=== PATIENT | male | born 1935 | race Caucasian/White ===

== ENCOUNTER 2017-12-27 13:46 | Inpatient (IN) ==
[2017-12-27 14:23] LABS: Basophils % 0.2 % (0.0-0.8); Eosinophils % 0.2 % (0.00-10.9); Hematocrit 32.2 VOL% (42.0-52.0); Immature Granulocytes % 1.7 %; Immature Granulocytes Absolute 0.11 #; Lymphocytes # 0.4 10*3/uL (1.4-4.0); Lymphocytes % 6.3 % (21.2-54.2); Mean Corpuscular HGB Conc 34.2 GM/DL (32-36); Mean Corpuscular Hemoglobin 31 PG (27-34); Mean Corpuscular Volume 91.7 FL (87-102); Mean Platelet Volume 9.1 FL (9.6-12.0); Monocytes # 0.8 10*3/uL (0.11-0.8); Monocytes % 12.3 % (1.7-12.7); Neutrophils # 5.2 10*3/uL (1.4-7.4); Neutrophils % 79.3 % (38.7-73.9); Platelet Count 122 T/CUMM (130-400); Red Blood Count 3.51 MC/CUMM (3.8-5.5); Red Cell Distribution Width 14.2 % (9.3-17.3); White Blood Count 6.5 T/CUMM (4-12)
[2017-12-27 14:34] LABS: INR 1.1; PT Patient Result 11.8 SECS; Partial Thromboplastin Time 32.7 SECS (0-40)
[2017-12-27] MEDS ORDERED: cefTRIAXone 1,000 MG in SODIUM CHLORIDE 0.9% 100 ML IV STA (14:39)
[2017-12-27] MEDS ORDERED: FUROSEMIDE 40 MG/4 ML VIAL IV STA (14:40)
[2017-12-27 14:44] LABS: Alanine Aminotransferase 28 U/L (16-61); Albumin 3.6 G/DL (3.4-5.0); Alkaline Phosphatase 41 U/L (45-117); Aspartate Amino Transferase 50 U/L (0-37); Blood Urea Nitrogen 20 MG/DL (7-18); Calcium 8.7 MG/DL (8.5-10.1); Glucose 144 MG/DL (74-106); Osmolality,Calculated 284.4 MOS/KG (273-304); Potassium 3.6 MMOL/L (3.5-5.1); Sodium 140 MMOL/L (136-145)
[2017-12-27] MEDS ORDERED: ONDANSETRON 4 MG/2 ML VIAL IV PRN (15:35)
[2017-12-27] MEDS ORDERED: MORPHINE 4 MG/1 ML VIAL IV PRN (15:35)
[2017-12-27] MEDS ORDERED: ACETAMINOPHEN 325 MG TABLET PO PRN (15:35)
[2017-12-27 15:37] LABS: Apearance,Urine CLEAR (Clear); Bilirubin,Urine Negative (Negative); Blood, Urine Small mg/dL (Negative); Glucose,Urine (UA) Negative (Negative); Ketones,Urine 5 mg/dL (Negative); Nitrite,Urine Negative (Negative); Protein,Urine 30 MG/DL; RBC,Urine 50 /HPF (0-4); Urine Color Yellow (Yellow); Urine Specific Gravity 1.013 (1.001-1.035); Urine Urobilinogen < 2.0 EU/DL (0.2-1.0); WBC,Urine 2 /HPF (0-6)
[2017-12-27] MEDS ORDERED: SODIUM CHLORIDE 0.45% 1,000 ML IV SCH (16:00)
[2017-12-27] MEDS: FUROSEMIDE 40 MG/4 ML VIAL IV SCH (17:25)
[2017-12-27] MEDS: LEVOFLOXACIN INJ 750 MG in PREMIX 1 EACH IV SCH (17:58)
[2017-12-27] MEDS: CARVEDILOL 3.125 MG TABLET PO SCH (19:37)
[2017-12-27] MEDS: DOCUSATE SODIUM 100 MG CAPSULE PO SCH (22:11)
[2017-12-28] MEDS: CARVEDILOL 3.125 MG TABLET PO SCH ×4 (00:46→18:15)
[2017-12-28 03:22] LABS: Basophils % 0.4 % (0.0-0.8); Eosinophils % 0.4 % (0.00-10.9); Hematocrit 28.5 VOL% (42.0-52.0); Hemoglobin 9.6 GM/DL (14.0-18.0); Immature Granulocytes % 1.6 %; Immature Granulocytes Absolute 0.08 #; Lymphocytes # 0.9 10*3/uL (1.4-4.0); Lymphocytes % 17.8 % (21.2-54.2); Mean Corpuscular HGB Conc 33.7 GM/DL (32-36); Mean Corpuscular Hemoglobin 30 PG (27-34); Mean Corpuscular Volume 89.9 FL (87-102); Mean Platelet Volume 8.8 FL (9.6-12.0); Monocytes # 0.8 10*3/uL (0.11-0.8); Monocytes % 16.2 % (1.7-12.7); Neutrophils # 3.2 10*3/uL (1.4-7.4); Neutrophils % 63.6 % (38.7-73.9); Platelet Count 113 T/CUMM (130-400); Red Blood Count 3.17 MC/CUMM (3.8-5.5); Red Cell Distribution Width 13.9 % (9.3-17.3)
[2017-12-28 03:48] LABS: CKMB % 0.8 %; Calcium 7.8 MG/DL (8.5-10.1); Osmolality,Calculated 286.8 MOS/KG (273-304); Risk Ratio 2.75; Troponin I 0.327 NG/ML (0.00-0.045); VLDL CHOLESTEROL 18.8 MG/DL
[2017-12-28 04:13] LABS: Band Neutrophils 6 % (0-10); Eosinophils 1 % (0-10); Lymphocytes 17 % (20-55); Segmented Neutrophils 66 % (50-85); Total Cells Counted 100
[2017-12-28 04:14] LABS: Atypical Lymphocytes Few; Hypochromasia Slight; Ovalocytes 1+; Platelet Estimate Adequate; Polychromasia Few; Reactive Lymphocytes Few
[2017-12-28] MEDS: POTASSIUM CHLORIDE 20 MEQ TABLET PO PRN ×4 (06:50→12:40)
[2017-12-28] MEDS: DOCUSATE SODIUM 100 MG CAPSULE PO SCH ×2 (09:01→20:58)
[2017-12-28] MEDS: FUROSEMIDE 40 MG/4 ML VIAL IV SCH ×2 (09:01→17:23)
[2017-12-28] MEDS: PANTOPRAZOLE 40 MG TABLET PO SCH (09:01)
[2017-12-28] MEDS: BENZONATATE 100 MG CAPSULE PO PRN (10:23)
[2017-12-28] MEDS ORDERED: APIXABAN 5 MG TABLET PO SCH (10:30)
[2017-12-28] MEDS ORDERED: ALUMINUM/MAGNES/SIMETH MAX STR 30 ML UDCUP PO PRN (12:06)
[2017-12-28] MEDS: ALBUTEROL/IPRATROPIUM 3 ML NEB RESP TX SCH ×2 (14:49→19:34)
[2017-12-28] MEDS ORDERED: cefTRIAXone 1,000 MG in SYRINGE 1 EACH IV SCH (16:30)
[2017-12-28] MEDS: LEVOFLOXACIN INJ 750 MG in PREMIX 1 EACH IV SCH (17:30)
[2017-12-29] MEDS: ALBUTEROL/IPRATROPIUM 3 ML NEB RESP TX SCH ×4 (00:27→19:12)
[2017-12-29] MEDS: BENZONATATE 100 MG CAPSULE PO PRN (05:27)
[2017-12-29] MEDS: FUROSEMIDE 40 MG/4 ML VIAL IV SCH ×2 (07:56→15:50)
[2017-12-29] MEDS ORDERED: PRAMOXINE/HYDROCORTISONE RECTAL FOAM 10 GM CAN RECTAL PRN (08:35)
[2017-12-29] MEDS ORDERED: ASCORBIC ACID 500 MG PO SCH (09:00)
[2017-12-29] MEDS ORDERED: POTASSIUM CHLORIDE 10 MEQ TABLET PO SCH (09:00)
[2017-12-29] MEDS ORDERED: MAGNESIUM CHLORIDE 64 MG TABLET PO SCH (09:00)
[2017-12-29] MEDS ORDERED: CHOLECALCIFEROL 5,000 UNIT TABLET PO SCH ×2 (09:00→10:30)
[2017-12-29] MEDS ORDERED: LEVOFLOXACIN INJ 500 MG in PREMIX 1 EACH IV SCH (09:00)
[2017-12-29] MEDS: DOCUSATE SODIUM 100 MG CAPSULE PO SCH ×2 (09:25→20:54)
[2017-12-29] MEDS: ASCORBIC ACID 500 MG TABLET PO SCH (09:27)
[2017-12-29] MEDS: TAMSULOSIN 0.4 MG CAPSULE PO SCH ×2 (09:27→20:53)
[2017-12-29] MEDS: VITAMIN E 400 UNIT CAPSULE PO SCH (09:27)
[2017-12-29] MEDS: METOPROLOL SUCCINATE XL 100 MG TABLET PO SCH (09:27)
[2017-12-29] MEDS: POTASSIUM CHLORIDE 10 MEQ TABLET PO SCH ×2 (09:27→20:53)
[2017-12-29] MEDS: APIXABAN 5 MG TABLET PO SCH ×2 (09:27→20:54)
[2017-12-29] MEDS: CYANOCOBALAMIN 500 MCG TABLET PO SCH (09:28)
[2017-12-29] MEDS: FAMOTIDINE 20 MG TABLET PO SCH ×2 (09:29→20:54)
[2017-12-29] MEDS: PANTOPRAZOLE 40 MG TABLET PO SCH (09:29)
[2017-12-29] MEDS: OMEGA 3 ACID ETHYL ESTERS 1 GM CAPSULE PO SCH ×2 (09:29→20:54)
[2017-12-29] MEDS: cycloSPORINE OPH EMUL 1 VIAL BOTH EYES SCH ×2 (09:31→20:57)
[2017-12-29] MEDS: MAGNESIUM CHLORIDE 64 MG TABLET PO SCH ×2 (09:43→20:52)
[2017-12-29 10:04] LABS: Troponin I 0.082 NG/ML (0.00-0.045)
[2017-12-29] MEDS: ATORVASTATIN 80 MG TABLET PO SCH (20:53)
[2017-12-29] MEDS: POTASSIUM CHLORIDE 20 MEQ TABLET PO PRN (20:53)
[2017-12-29] MEDS: FENOFIBRATE 160 MG TABLET PO SCH (20:53)
[2017-12-30] MEDS: ALBUTEROL/IPRATROPIUM 3 ML NEB RESP TX SCH ×4 (00:17→19:10)
[2017-12-30 04:12] LABS: Basophils % 0.4 % (0.0-0.8); Eosinophils # 0.2 10*3/uL (0.0-0.87); Eosinophils % 4.5 % (0.00-10.9); Hematocrit 30.1 VOL% (42.0-52.0); Hemoglobin 10.1 GM/DL (14.0-18.0); Immature Granulocytes % 2.5 %; Immature Granulocytes Absolute 0.12 #; Lymphocytes # 1.2 10*3/uL (1.4-4.0); Lymphocytes % 23.8 % (21.2-54.2); Mean Corpuscular HGB Conc 33.6 GM/DL (32-36); Mean Corpuscular Hemoglobin 31 PG (27-34); Mean Corpuscular Volume 91.2 FL (87-102); Monocytes # 0.7 10*3/uL (0.11-0.8); Monocytes % 13.6 % (1.7-12.7); Neutrophils # 2.7 10*3/uL (1.4-7.4); Neutrophils % 55.2 % (38.7-73.9); Platelet Count 157 T/CUMM (130-400); Red Cell Distribution Width 14.4 % (9.3-17.3); White Blood Count 4.8 T/CUMM (4-12)
[2017-12-30 04:41] LABS: Albumin 2.9 G/DL (3.4-5.0); Bilirubin,Total 1.3 MG/DL (0.2-1.0); Calcium 8.1 MG/DL (8.5-10.1); Osmolality,Calculated 286.8 MOS/KG (273-304); Potassium 3.7 MMOL/L (3.5-5.1); Total Protein 6.4 G/DL (6.4-8.3)
[2017-12-30] MEDS: MAGNESIUM CHLORIDE 64 MG TABLET PO SCH ×2 (08:54→21:08)
[2017-12-30] MEDS: CYANOCOBALAMIN 500 MCG TABLET PO SCH (08:54)
[2017-12-30] MEDS: DOCUSATE SODIUM 100 MG CAPSULE PO SCH ×2 (08:54→21:10)
[2017-12-30] MEDS: VITAMIN E 400 UNIT CAPSULE PO SCH (08:55)
[2017-12-30] MEDS: OMEGA 3 ACID ETHYL ESTERS 1 GM CAPSULE PO SCH ×2 (08:55→21:09)
[2017-12-30] MEDS: ASCORBIC ACID 500 MG TABLET PO SCH (08:55)
[2017-12-30] MEDS: METOPROLOL SUCCINATE XL 100 MG TABLET PO SCH (08:55)
[2017-12-30] MEDS: PANTOPRAZOLE 40 MG TABLET PO SCH (08:55)
[2017-12-30] MEDS: FAMOTIDINE 20 MG TABLET PO SCH ×2 (08:55→21:08)
[2017-12-30] MEDS: CHOLECALCIFEROL 5,000 UNIT TABLET PO SCH (08:55)
[2017-12-30] MEDS: POTASSIUM CHLORIDE 10 MEQ TABLET PO SCH ×2 (08:55→21:09)
[2017-12-30] MEDS: APIXABAN 5 MG TABLET PO SCH ×2 (08:55→21:09)
[2017-12-30] MEDS: TAMSULOSIN 0.4 MG CAPSULE PO SCH ×2 (08:55→21:09)
[2017-12-30] MEDS: DOXYCYCLINE HYCLATE 100 MG CAPSULE PO SCH ×2 (09:07→21:09)
[2017-12-30] MEDS: FUROSEMIDE 40 MG TABLET PO SCH (09:08)
[2017-12-30] MEDS: FUROSEMIDE 40 MG/4 ML VIAL IV SCH (09:15)
[2017-12-30] MEDS: cycloSPORINE OPH EMUL 1 VIAL BOTH EYES SCH ×2 (11:43→21:10)
[2017-12-30 13:16] LABS: Mycoplasma pneumoniae Ab Inter SEE COMMENTS; Mycoplasma pneumoniae Ab, IgG Positive (Negative); Mycoplasma pneumoniae Ab, IgM Negative (Negative)
[2017-12-30] MEDS: FENOFIBRATE 160 MG TABLET PO SCH (21:08)
[2017-12-30] MEDS: ATORVASTATIN 80 MG TABLET PO SCH (21:09)
[2017-12-31] MEDS: ALBUTEROL/IPRATROPIUM 3 ML NEB RESP TX SCH ×4 (00:50→19:46)
[2017-12-31 04:39] LABS: Basophils % 0.5 % (0.0-0.8); Eosinophils # 0.3 10*3/uL (0.0-0.87); Hematocrit 31.6 VOL% (42.0-52.0); Hemoglobin 10.3 GM/DL (14.0-18.0); Immature Granulocytes % 4.8 %; Immature Granulocytes Absolute 0.27 #; Lymphocytes # 1.2 10*3/uL (1.4-4.0); Lymphocytes % 21.9 % (21.2-54.2); Mean Corpuscular HGB Conc 32.6 GM/DL (32-36); Mean Corpuscular Hemoglobin 30 PG (27-34); Mean Corpuscular Volume 91.3 FL (87-102); Mean Platelet Volume 8.9 FL (9.6-12.0); Monocytes # 0.8 10*3/uL (0.11-0.8); Monocytes % 13.3 % (1.7-12.7); Neutrophils # 3.1 10*3/uL (1.4-7.4); Neutrophils % 54.5 % (38.7-73.9); Platelet Count 214 T/CUMM (130-400); Red Blood Count 3.46 MC/CUMM (3.8-5.5); White Blood Count 5.6 T/CUMM (4-12)
[2017-12-31 05:01] LABS: Bilirubin,Total 1.2 MG/DL (0.2-1.0); Calcium 8.3 MG/DL (8.5-10.1); Osmolality,Calculated 286.8 MOS/KG (273-304); Potassium 4.1 MMOL/L (3.5-5.1); Total Protein 6.4 G/DL (6.4-8.3)
[2017-12-31 05:02] LABS: Band Neutrophils 1 % (0-10); Eosinophils 4 % (0-10); Hypochromasia 1+; Lymphocytes 15 % (20-55); Platelet Estimate Adequate; Segmented Neutrophils 67 % (50-85); Total Cells Counted 100
[2017-12-31 05:03] LABS: Atypical Lymphocytes Few
[2017-12-31] MEDS ORDERED: methylPREDNISolone ACETATE 40 MG/1 ML VIAL IM ONE (07:39)
[2017-12-31] MEDS: CYANOCOBALAMIN 500 MCG TABLET PO SCH (09:42)
[2017-12-31] MEDS: FAMOTIDINE 20 MG TABLET PO SCH ×2 (09:42→21:35)
[2017-12-31] MEDS: MAGNESIUM CHLORIDE 64 MG TABLET PO SCH ×2 (09:43→21:35)
[2017-12-31] MEDS: VITAMIN E 400 UNIT CAPSULE PO SCH (09:43)
[2017-12-31] MEDS: BENZONATATE 100 MG CAPSULE PO PRN (09:43)
[2017-12-31] MEDS: TAMSULOSIN 0.4 MG CAPSULE PO SCH ×2 (09:44→21:35)
[2017-12-31] MEDS: POTASSIUM CHLORIDE 10 MEQ TABLET PO SCH ×2 (09:44→21:35)
[2017-12-31] MEDS: APIXABAN 5 MG TABLET PO SCH ×2 (09:44→21:35)
[2017-12-31] MEDS: DOXYCYCLINE HYCLATE 100 MG CAPSULE PO SCH ×2 (09:44→21:35)
[2017-12-31] MEDS: METOPROLOL SUCCINATE XL 100 MG TABLET PO SCH (09:44)
[2017-12-31] MEDS: CHOLECALCIFEROL 5,000 UNIT TABLET PO SCH (09:44)
[2017-12-31] MEDS: DOCUSATE SODIUM 100 MG CAPSULE PO SCH (09:45)
[2017-12-31] MEDS: cycloSPORINE OPH EMUL 1 VIAL BOTH EYES SCH ×2 (09:45→21:36)
[2017-12-31] MEDS: OMEGA 3 ACID ETHYL ESTERS 1 GM CAPSULE PO SCH ×2 (09:45→21:35)
[2017-12-31] MEDS: ASCORBIC ACID 500 MG TABLET PO SCH (09:45)
[2017-12-31] MEDS: PANTOPRAZOLE 40 MG TABLET PO SCH (09:45)
[2017-12-31] MEDS: FUROSEMIDE 40 MG TABLET PO SCH (09:47)
[2017-12-31] MEDS: FENOFIBRATE 160 MG TABLET PO SCH (21:35)
[2017-12-31] MEDS: ATORVASTATIN 80 MG TABLET PO SCH (21:35)
[2018-01-01] MEDS: ALBUTEROL/IPRATROPIUM 3 ML NEB RESP TX SCH ×2 (01:13→07:35)
[2018-01-01] MEDS: DOCUSATE SODIUM 100 MG CAPSULE PO SCH ×2 (04:03→09:33)
[2018-01-01 05:06] LABS: Basophils % 0.6 % (0.0-0.8); Eosinophils # 0.3 10*3/uL (0.0-0.87); Eosinophils % 4.8 % (0.00-10.9); Hematocrit 31.6 VOL% (42.0-52.0); Hemoglobin 10.6 GM/DL (14.0-18.0); Immature Granulocytes % 7.2 %; Immature Granulocytes Absolute 0.45 #; Lymphocytes # 1.1 10*3/uL (1.4-4.0); Lymphocytes % 17.3 % (21.2-54.2); Mean Corpuscular HGB Conc 33.5 GM/DL (32-36); Mean Corpuscular Hemoglobin 31 PG (27-34); Mean Corpuscular Volume 91.3 FL (87-102); Mean Platelet Volume 8.7 FL (9.6-12.0); Monocytes # 0.8 10*3/uL (0.11-0.8); Monocytes % 13.4 % (1.7-12.7); Neutrophils # 3.6 10*3/uL (1.4-7.4); Neutrophils % 56.7 % (38.7-73.9); Platelet Count 234 T/CUMM (130-400); Red Blood Count 3.46 MC/CUMM (3.8-5.5); Red Cell Distribution Width 14.1 % (9.3-17.3); White Blood Count 6.3 T/CUMM (4-12)
[2018-01-01 05:18] LABS: Calcium 8.2 MG/DL (8.5-10.1); Potassium 4.2 MMOL/L (3.5-5.1)
[2018-01-01 05:34] LABS: Band Neutrophils 3 % (0-10); Eosinophils 3 % (0-10); Lymphocytes 18 % (20-55); Ovalocytes 1+; Platelet Estimate Normal; Segmented Neutrophils 63 % (50-85); Total Cells Counted 100
[2018-01-01 08:16] VITALS: BP 126/67
[2018-01-01] MEDS: BENZONATATE 100 MG CAPSULE PO PRN (09:33)
[2018-01-01] MEDS: APIXABAN 5 MG TABLET PO SCH (09:34)
[2018-01-01] MEDS: VITAMIN E 400 UNIT CAPSULE PO SCH (09:34)
[2018-01-01] MEDS: FUROSEMIDE 40 MG TABLET PO SCH (09:34)
[2018-01-01] MEDS: CHOLECALCIFEROL 5,000 UNIT TABLET PO SCH (09:34)
[2018-01-01] MEDS: FAMOTIDINE 20 MG TABLET PO SCH (09:34)
[2018-01-01] MEDS: METOPROLOL SUCCINATE XL 100 MG TABLET PO SCH (09:35)
[2018-01-01] MEDS: TAMSULOSIN 0.4 MG CAPSULE PO SCH (09:35)
[2018-01-01] MEDS: CYANOCOBALAMIN 500 MCG TABLET PO SCH (09:35)
[2018-01-01] MEDS: MAGNESIUM CHLORIDE 64 MG TABLET PO SCH (09:35)
[2018-01-01] MEDS: POTASSIUM CHLORIDE 10 MEQ TABLET PO SCH (09:36)
[2018-01-01] MEDS: OMEGA 3 ACID ETHYL ESTERS 1 GM CAPSULE PO SCH (09:36)
[2018-01-01] MEDS: DOXYCYCLINE HYCLATE 100 MG CAPSULE PO SCH (09:36)
[2018-01-01] MEDS: cycloSPORINE OPH EMUL 1 VIAL BOTH EYES SCH (09:36)
[2018-01-01] MEDS: ASCORBIC ACID 500 MG TABLET PO SCH (09:36)
[2018-01-01] MEDS: PANTOPRAZOLE 40 MG TABLET PO SCH (09:36)
== END 2018-01-01 10:40 | disposition home or self-care (01) | DRG 871 ==
LOC: N.ED 13:46 → N.EDINP 15:35 → N.TELES 16:12
PROVIDERS: ADMIT Family Medicine; ATTEND Family Medicine

== ENCOUNTER 2018-06-11 22:59 | Inpatient (IN) ==
[2018-06-11] MEDS ORDERED: SODIUM CHLORIDE 0.9% 500 ML IV STA (23:33)
[2018-06-11] MEDS ORDERED: ACETAMINOPHEN 500 MG TABLET PO STA (23:33)
[2018-06-11] MEDS ORDERED: PIPERACILLIN/TAZOBACTAM 3,375 MG in SODIUM CHLORIDE 0.9% 100 ML IV STA (23:33)
[2018-06-12] MEDS ORDERED: ONDANSETRON 4 MG/2 ML VIAL IV STA (00:33)
[2018-06-12] MEDS ORDERED: MORPHINE 4 MG/1 ML VIAL IV STA (00:33)
[2018-06-12] MEDS ORDERED: ONDANSETRON 4 MG/2 ML VIAL ONE (00:34)
[2018-06-12] MEDS ORDERED: MORPHINE 4 MG/1 ML VIAL ONE (00:34)
[2018-06-12 00:58] LABS: Alanine Aminotransferase 15 U/L (16-61); Albumin 2.6 G/DL (3.4-5.0); Alkaline Phosphatase 55 U/L (45-117); Amylase 39 U/L (25-115); Aspartate Amino Transferase 20 U/L (0-37); Blood Urea Nitrogen 16 MG/DL (7-18); Calcium 8.5 MG/DL (8.5-10.1); Glucose 132 MG/DL (74-106); Osmolality,Calculated 275.8 MOS/KG (273-304); Total Protein 6.4 G/DL (6.4-8.3)
[2018-06-12 01:01] LABS: Troponin I 0.071 NG/ML (0.00-0.045)
[2018-06-12 01:21] LABS: INR 1.2; PT Patient Result 12.7 SECS
[2018-06-12] MEDS ORDERED: FUROSEMIDE 40 MG/4 ML VIAL IV STA (01:28)
[2018-06-12 01:33] LABS: Basophils % 0.1 % (0.0-0.8); Eosinophils % 0.1 % (0.00-10.9); Hematocrit 29.5 VOL% (42.0-52.0); Hemoglobin 9.2 GM/DL (14.0-18.0); Lymphocytes % 1.8 % (21.2-54.2); Mean Corpuscular HGB Conc 31.2 GM/DL (32-36); Mean Corpuscular Volume 82.6 FL (87-102); Mean Platelet Volume 8.4 FL (9.6-12.0); Monocytes % 5.5 % (1.7-12.7); Neutrophils % 89.5 % (38.7-73.9); Platelet Count 333 T/CUMM (130-400); Red Blood Count 3.57 MC/CUMM (3.8-5.5); Red Cell Distribution Width 15.7 % (9.3-17.3)
[2018-06-12 01:34] LABS: Immature Granulocytes Absolute 0.44 #; Lymphocytes # 0.3 10*3/uL (1.4-4.0)
[2018-06-12 01:35] LABS: White Blood Count 14.9 T/CUMM (4-12)
[2018-06-12 01:35] LABS: Apearance,Urine CLEAR (Clear); Bacteria,Urine Occasional /HPF (Few); Bilirubin,Urine Negative (Negative); Blood, Urine Negative (Negative); Glucose,Urine (UA) Negative (Negative); Ketones,Urine Negative (Negative); Nitrite,Urine Negative (Negative); Protein,Urine Negative; RBC,Urine 1 /HPF (0-4); Urine Color Yellow (Yellow); Urine Specific Gravity 1.008 (1.001-1.035); Urine Urobilinogen < 2.0 EU/DL (0.2-1.0); WBC,Urine <1 /HPF (0-6)
[2018-06-12] MEDS ORDERED: IBUPROFEN 800 MG TABLET PO ONE (02:15)
[2018-06-12] MEDS ORDERED: IBUPROFEN 800 MG TABLET ONE (02:16)
[2018-06-12 02:40] LABS: Sedimentation Rate-Westergren 107 MM/HR (0-20)
[2018-06-12] MEDS ORDERED: ACETAMINOPHEN 325 MG TABLET PO PRN (02:53)
[2018-06-12] MEDS ORDERED: MORPHINE 4 MG/1 ML VIAL IV PRN (02:53)
[2018-06-12] MEDS ORDERED: SODIUM CHLORIDE 0.9% 1,000 ML IV SCH (02:53)
[2018-06-12] MEDS ORDERED: ONDANSETRON 4 MG/2 ML VIAL IV PRN (02:53)
[2018-06-12 03:09] LABS: Lymphocytes 1 % (20-55); Metamyelocytes 1 %; Myelocytes 1 %; Platelet Estimate Normal; Polychromasia Slight; Segmented Neutrophils 95 % (50-85); Total Cells Counted 100
[2018-06-12] MEDS: ALBUTEROL/IPRATROPIUM 3 ML NEB RESP TX SCH ×6 (03:33→23:25)
[2018-06-12 04:48] LABS: Basophils % 0.3 % (0.0-0.8); Hematocrit 27.8 VOL% (42.0-52.0); Hemoglobin 8.3 GM/DL (14.0-18.0); Immature Granulocytes % 1.2 %; Immature Granulocytes Absolute 0.18 #; Lymphocytes # 0.3 10*3/uL (1.4-4.0); Mean Corpuscular HGB Conc 29.9 GM/DL (32-36); Mean Platelet Volume 8.2 FL (9.6-12.0); Monocytes % 4.9 % (1.7-12.7); Neutrophils % 91.6 % (38.7-73.9); Platelet Count 247 T/CUMM (130-400); Red Blood Count 3.31 MC/CUMM (3.8-5.5); Red Cell Distribution Width 15.7 % (9.3-17.3); White Blood Count 15.1 T/CUMM (4-12)
[2018-06-12 05:06] LABS: Albumin 2.4 G/DL (3.4-5.0); Bilirubin,Total 0.8 MG/DL (0.2-1.0); Calcium 8.1 MG/DL (8.5-10.1); Osmolality,Calculated 275.8 MOS/KG (273-304); Total Protein 5.8 G/DL (6.4-8.3)
[2018-06-12 06:06] LABS: Lymphocytes 1 % (20-55); Platelet Estimate Normal; Segmented Neutrophils 92 % (50-85); Total Cells Counted 100
[2018-06-12 06:07] LABS: Polychromasia Few
[2018-06-12] MEDS ORDERED: MAGNESIUM SULF RIDER 2 GM in PREMIX 1 EACH IV ONE (08:40)
[2018-06-12] MEDS: TAMSULOSIN 0.4 MG CAPSULE PO SCH ×2 (09:00→20:11)
[2018-06-12] MEDS: APIXABAN 5 MG TABLET PO SCH ×2 (09:00→20:11)
[2018-06-12] MEDS: DOCUSATE SODIUM 100 MG CAPSULE PO SCH ×2 (09:00→20:12)
[2018-06-12] MEDS ORDERED: FUROSEMIDE 40 MG TABLET PO SCH (09:00)
[2018-06-12] MEDS: POTASSIUM CHLORIDE RIDER 10 MEQ in PREMIX 1 EACH IV SCH ×2 (09:01→10:52)
[2018-06-12] MEDS: PANTOPRAZOLE 40 MG VIAL IV SCH (09:01)
[2018-06-12] MEDS: FUROSEMIDE 40 MG/4 ML VIAL IV SCH ×2 (09:01→15:25)
[2018-06-12] MEDS: PIPERACILLIN/TAZOBACTAM 3,375 MG in SODIUM CHLORIDE 0.9% 100 ML IV SCH ×2 (09:02→16:57)
[2018-06-12] MEDS: cycloSPORINE OPH EMUL 1 VIAL BOTH EYES SCH ×2 (09:31→20:12)
[2018-06-12] MEDS: POTASSIUM CHLORIDE 20 MEQ TABLET PO PRN ×4 (11:02→18:54)
[2018-06-12] MEDS ORDERED: POTASSIUM CHLORIDE RIDER 10 MEQ in PREMIX 1 EACH IV PRN (11:40)
[2018-06-12] MEDS ORDERED: MAGNESIUM SULF RIDER 4 GM in PREMIX 1 EACH IV PRN (11:43)
[2018-06-12] MEDS ORDERED: MAGNESIUM SULF RIDER 2 GM in PREMIX 1 EACH IV PRN (11:43)
[2018-06-12] MEDS: VANCOMYCIN INJ 1,500 MG in SODIUM CHLORIDE 0.9% 500 ML IV SCH (15:25)
[2018-06-12] MEDS: POTASSIUM CHLORIDE INJ 20 MEQ, MAGNESIUM SULF INJ 1 GM in DEXTROSE 5% NACL 0.45% 1,000 ML IV SCH (18:06)
[2018-06-12] MEDS: MORPHINE 4 MG/1 ML VIAL IV PRN ×2 (20:08→23:58)
[2018-06-12] MEDS ORDERED: ATORVASTATIN 80 MG TABLET PO SCH (21:00)
[2018-06-12] MEDS ORDERED: FENOFIBRATE 160 MG TABLET PO SCH (21:00)
[2018-06-13] MEDS: PIPERACILLIN/TAZOBACTAM 3,375 MG in SODIUM CHLORIDE 0.9% 100 ML IV SCH ×2 (00:58→09:02)
[2018-06-13] MEDS: ALBUTEROL/IPRATROPIUM 3 ML NEB RESP TX SCH ×3 (03:00→11:00)
[2018-06-13] MEDS: POTASSIUM CHLORIDE INJ 20 MEQ, MAGNESIUM SULF INJ 1 GM in DEXTROSE 5% NACL 0.45% 1,000 ML IV SCH (04:18)
[2018-06-13] MEDS: VANCOMYCIN INJ 1,500 MG in SODIUM CHLORIDE 0.9% 500 ML IV SCH (04:21)
[2018-06-13] MEDS: MORPHINE 4 MG/1 ML VIAL IV PRN ×2 (04:25→11:12)
[2018-06-13] MEDS: METOPROLOL TARTRATE 50 MG TABLET PO SCH ×3 (04:25→10:32)
[2018-06-13 05:04] LABS: Basophils % 0.3 % (0.0-0.8); Eosinophils % 0.1 % (0.00-10.9); Hematocrit 24.6 VOL% (42.0-52.0); Hemoglobin 7.5 GM/DL (14.0-18.0); Immature Granulocytes % 1.6 %; Immature Granulocytes Absolute 0.12 #; Lymphocytes # 0.5 10*3/uL (1.4-4.0); Lymphocytes % 6.1 % (21.2-54.2); Mean Corpuscular HGB Conc 30.5 GM/DL (32-36); Mean Corpuscular Volume 83.4 FL (87-102); Mean Platelet Volume 8.4 FL (9.6-12.0); Monocytes % 10.1 % (1.7-12.7); Neutrophils % 81.8 % (38.7-73.9); Platelet Count 215 T/CUMM (130-400); Red Blood Count 2.95 MC/CUMM (3.8-5.5); White Blood Count 7.7 T/CUMM (4-12)
[2018-06-13 05:22] LABS: Hypochromasia 1+; Ovalocytes Slight; Platelet Estimate Adequate
[2018-06-13 05:54] LABS: Albumin 2.1 G/DL (3.4-5.0); Bilirubin,Total 0.5 MG/DL (0.2-1.0); Calcium 7.7 MG/DL (8.5-10.1); Osmolality,Calculated 280.8 MOS/KG (273-304); Thyroid Stimulating Hormone 2.18 uIU/ml (0.358-3.74); Total Protein 5.4 G/DL (6.4-8.3)
[2018-06-13] MEDS: PANTOPRAZOLE 40 MG VIAL IV SCH (08:54)
[2018-06-13] MEDS: DOCUSATE SODIUM 100 MG CAPSULE PO SCH (08:54)
[2018-06-13] MEDS: APIXABAN 5 MG TABLET PO SCH (08:54)
[2018-06-13] MEDS: TAMSULOSIN 0.4 MG CAPSULE PO SCH (08:54)
[2018-06-13] MEDS: cycloSPORINE OPH EMUL 1 VIAL BOTH EYES SCH (08:54)
[2018-06-13 10:33] VITALS: BP 119/57
== END 2018-06-13 11:10 | disposition hospice, home (50) | DRG 872 ==
LOC: N.ED 22:59 → N.EDINP 06-12 01:50 → N.TELEN 06-12 02:12
PROVIDERS: ADMIT Family Medicine; ATTEND Family Medicine

== ENCOUNTER 2021-10-08 14:15 | Inpatient (IN) ==
[2021-10-08 14:52] LABS: Basophils # 0.1 10*3/uL (0.0-0.2); Eosinophils # 0.2 10*3/uL (0.0-0.87); Eosinophils % 2.2 % (0.00-10.9); Hemoglobin 7.3 GM/DL (14.0-18.0); Immature Granulocytes % 2.4 %; Immature Granulocytes Absolute 0.19 #; Lymphocytes # 0.5 10*3/uL (1.4-4.0); Lymphocytes % 6.7 % (21.2-54.2); Mean Corpuscular HGB Conc 30.4 GM/DL (32-36); Mean Corpuscular Volume 104.8 FL (87-102); Mean Platelet Volume 8.7 FL (9.6-12.0); Monocytes # 0.9 10*3/uL (0.11-0.8); Monocytes % 12.1 % (1.7-12.7); NRBC # 0.03 10*3/uL; Neutrophils % 75.6 % (38.7-73.9); Platelet Count 179 T/CUMM (130-400); Red Blood Count 2.29 MC/CUMM (3.8-5.5); White Blood Count 7.8 T/CUMM (4-12)
[2021-10-08] MEDS ORDERED: SODIUM CHLORIDE 0.9% 1,000 ML IV PRN (15:04)
[2021-10-08 15:08] LABS: INR 1.2; PT Patient Result 13.4 SECS (10.1-12.1); Partial Thromboplastin Time 29.2 SECS (23.7-32.9)
[2021-10-08 15:16] LABS: Albumin 3.3 G/DL (3.4-5.0); Calcium 8.4 MG/DL (8.5-10.1); Osmolality,Calculated 292.1 MOS/KG (273-304); Potassium 4.4 MMOL/L (3.5-5.1); Total Protein 5.6 G/DL (6.4-8.2)
[2021-10-08] MEDS ORDERED: ONDANSETRON 4 MG/2 ML VIAL IV PRN (15:43)
[2021-10-08] MEDS ORDERED: ACETAMINOPHEN 325 MG TABLET PO PRN (15:43)
[2021-10-08] MEDS ORDERED: GLUCAGON 1 MG VIAL IM PRN (15:43)
[2021-10-08] MEDS ORDERED: DEXTROSE 10% 250 ML BAG IV PRN (15:43)
[2021-10-08 17:56] LABS: Hyaline Casts,Urine 16 /LPF (0-3); RBC,Urine <1 /HPF (0-4)
[2021-10-08 17:57] LABS: Bilirubin,Urine Negative (Negative); Blood, Urine Negative (Negative); Glucose,Urine (UA) Negative (Negative); Ketones,Urine Negative (Negative); Nitrite,Urine Negative (Negative); Protein,Urine Negative (Negative); Urine Appearance Clear (Clear); Urine Color Yellow (Yellow); Urine Specific Gravity 1.015 (1.001-1.035); Urine Urobilinogen 0.2 eU/dL (<2.0)
[2021-10-08] MEDS: FENOFIBRATE 160 MG TABLET PO SCH (22:13)
[2021-10-08] MEDS: TAMSULOSIN 0.4 MG CAPSULE PO SCH (22:13)
[2021-10-08] MEDS: PANTOPRAZOLE 40 MG TABLET PO SCH (22:14)
[2021-10-08] MEDS: ATORVASTATIN 80 MG TABLET PO SCH (22:14)
[2021-10-08 23:26] LABS: Hematocrit 26.8 VOL% (42.0-52.0); Hemoglobin 8.1 GM/DL (14.0-18.0)
[2021-10-09 06:13] LABS: Basophils # 0.1 10*3/uL (0.0-0.2); Basophils % 0.8 % (0.0-0.8); Eosinophils # 0.5 10*3/uL (0.0-0.87); Eosinophils % 6.1 % (0.00-10.9); Hematocrit 29.4 VOL% (42.0-52.0); Hemoglobin 9.3 GM/DL (14.0-18.0); Immature Granulocytes % 2.5 %; Immature Granulocytes Absolute 0.18 #; Lymphocytes # 0.9 10*3/uL (1.4-4.0); Lymphocytes % 11.9 % (21.2-54.2); Mean Corpuscular HGB Conc 31.6 GM/DL (32-36); Mean Corpuscular Volume 98.7 FL (87-102); Mean Platelet Volume 8.9 FL (9.6-12.0); Monocytes # 1.1 10*3/uL (0.11-0.8); Monocytes % 14.3 % (1.7-12.7); NRBC # 0.03 10*3/uL; Neutrophils % 64.4 % (38.7-73.9); Platelet Count 157 T/CUMM (130-400); Red Blood Count 2.98 MC/CUMM (3.8-5.5); Red Cell Distribution Width 19.6 % (9.3-17.3); White Blood Count 7.3 T/CUMM (4-12)
[2021-10-09 06:16] LABS: Hematocrit 29.2 VOL% (42.0-52.0); Hemoglobin 9.2 GM/DL (14.0-18.0)
[2021-10-09 06:37] LABS: Albumin 2.9 G/DL (3.4-5.0); Bilirubin,Total 1.1 MG/DL (0.20-1.00); Calcium 8.6 MG/DL (8.5-10.1); Osmolality,Calculated 290.1 MOS/KG (273-304); Potassium 4.6 MMOL/L (3.5-5.1); Total Protein 5.4 G/DL (6.4-8.2)
[2021-10-09] MEDS: TAMSULOSIN 0.4 MG CAPSULE PO SCH ×2 (09:25→20:30)
[2021-10-09] MEDS: allopurinoL 300 MG TABLET PO SCH (09:26)
[2021-10-09] MEDS: FUROSEMIDE 20 MG TABLET PO SCH (09:26)
[2021-10-09] MEDS: METOPROLOL SUCCINATE XL 100 MG TABLET PO SCH (11:41)
[2021-10-09] MEDS: FENOFIBRATE 160 MG TABLET PO SCH (20:30)
[2021-10-09] MEDS: ATORVASTATIN 80 MG TABLET PO SCH (20:30)
[2021-10-09] MEDS: PANTOPRAZOLE 40 MG TABLET PO SCH (20:30)
[2021-10-10 06:06] LABS: Basophils # 0.1 10*3/uL (0.0-0.2); Basophils % 0.7 % (0.0-0.8); Eosinophils # 0.8 10*3/uL (0.0-0.87); Eosinophils % 9.7 % (0.00-10.9); Hematocrit 29.5 VOL% (42.0-52.0); Immature Granulocytes % 1.4 %; Immature Granulocytes Absolute 0.12 #; Lymphocytes % 11.4 % (21.2-54.2); Mean Corpuscular HGB Conc 30.5 GM/DL (32-36); Mean Platelet Volume 8.8 FL (9.6-12.0); Monocytes # 1.1 10*3/uL (0.11-0.8); Monocytes % 12.8 % (1.7-12.7); NRBC # 0.02 10*3/uL; Platelet Count 155 T/CUMM (130-400); Red Blood Count 2.92 MC/CUMM (3.8-5.5); Red Cell Distribution Width 19.9 % (9.3-17.3); White Blood Count 8.4 T/CUMM (4-12)
[2021-10-10 06:15] LABS: Calcium 8.3 MG/DL (8.5-10.1); Osmolality,Calculated 296.7 MOS/KG (273-304); Potassium 3.7 MMOL/L (3.5-5.1)
[2021-10-10] MEDS: MULTIVITAMIN (BEROCCA) TABLET PO SCH (09:47)
[2021-10-10] MEDS: ASCORBIC ACID 500 MG TABLET PO SCH (09:50)
[2021-10-10] MEDS: TAMSULOSIN 0.4 MG CAPSULE PO SCH ×2 (09:50→20:48)
[2021-10-10] MEDS: CYANOCOBALAMIN 500 MCG TABLET PO SCH (09:50)
[2021-10-10] MEDS: allopurinoL 300 MG TABLET PO SCH (09:50)
[2021-10-10] MEDS: CHOLECALCIFEROL 1,000 UNIT TABLET PO SCH (09:50)
[2021-10-10] MEDS: MAGNESIUM CHLORIDE 64 MG TABLET PO SCH (09:51)
[2021-10-10] MEDS: POTASSIUM CHLORIDE 10 MEQ TABLET PO SCH (09:51)
[2021-10-10] MEDS: METOPROLOL SUCCINATE XL 100 MG TABLET PO SCH (09:51)
[2021-10-10] MEDS: FUROSEMIDE 20 MG TABLET PO SCH (09:51)
[2021-10-10] MEDS: VITAMIN E 400 UNIT CAPSULE PO SCH (09:51)
[2021-10-10] MEDS: ATORVASTATIN 80 MG TABLET PO SCH (20:47)
[2021-10-10] MEDS: PANTOPRAZOLE 40 MG TABLET PO SCH (20:47)
[2021-10-10] MEDS: FENOFIBRATE 160 MG TABLET PO SCH (20:48)
[2021-10-11 05:53] LABS: Basophils % 0.5 % (0.0-0.8); Eosinophils # 0.6 10*3/uL (0.0-0.87); Eosinophils % 8.2 % (0.00-10.9); Immature Granulocytes % 1.2 %; Immature Granulocytes Absolute 0.09 #; Lymphocytes # 0.7 10*3/uL (1.4-4.0); Mean Corpuscular Volume 99.7 FL (87-102); Mean Platelet Volume 8.6 FL (9.6-12.0); Monocytes # 1.1 10*3/uL (0.11-0.8); Monocytes % 14.6 % (1.7-12.7); Neutrophils % 66.5 % (38.7-73.9); Platelet Count 121 T/CUMM (130-400); Red Blood Count 2.91 MC/CUMM (3.8-5.5); Red Cell Distribution Width 18.6 % (9.3-17.3); White Blood Count 7.7 T/CUMM (4-12)
[2021-10-11 06:14] LABS: Calcium 8.1 MG/DL (8.5-10.1); Osmolality,Calculated 290.7 MOS/KG (273-304); Potassium 3.7 MMOL/L (3.5-5.1)
[2021-10-11] MEDS ORDERED: BUPIVACAINE LIPOSOMAL 20 ML/266 MG VIAL ONE (08:50)
[2021-10-11] MEDS ORDERED: PHENYLEPHRINE DRIP 20 MG/250 ML PREMIX IV ONE (08:56)
[2021-10-11] MEDS ORDERED: LACTATED RINGERS 1,000 ML IV SCH (09:00)
[2021-10-11] MEDS ORDERED: ETOMIDATE 40 MG/20 ML VIAL IV ONE (09:04)
[2021-10-11] MEDS ORDERED: propofoL 200 MG/20 ML VIAL IV ONE (09:04)
[2021-10-11] MEDS ORDERED: ROCURONIUM 50 MG/5 ML VIAL IV ONE (09:04)
[2021-10-11] MEDS ORDERED: DESFLURANE 1 UNIT/15 MINUTE INH ONE ×2 (09:04→10:22)
[2021-10-11] MEDS ORDERED: LIDOCAINE 2% 5 ML VIAL ONE (09:04)
[2021-10-11] MEDS ORDERED: fentaNYL 100 MCG/2 ML VIAL ONE (09:05)
[2021-10-11] MEDS ORDERED: LIDOCAINE 2% TOP JELLY 5 ML TUBE TOP ONE (09:59)
[2021-10-11] MEDS ORDERED: PHENYLEPHRINE 1 MG/10 ML SYRINGE IV ONE (10:05)
[2021-10-11] MEDS ORDERED: ESMOLOL 100 MG/10 ML VIAL IV ONE (10:06)
[2021-10-11] MEDS ORDERED: SUGAMMADEX 200 MG/2 ML VIAL IV ONE (10:10)
[2021-10-11] MEDS: VITAMIN E 400 UNIT CAPSULE PO SCH (12:42)
[2021-10-11] MEDS: MULTIVITAMIN (BEROCCA) TABLET PO SCH (12:42)
[2021-10-11] MEDS: CHOLECALCIFEROL 1,000 UNIT TABLET PO SCH (12:43)
[2021-10-11] MEDS: MAGNESIUM CHLORIDE 64 MG TABLET PO SCH (12:43)
[2021-10-11] MEDS: POTASSIUM CHLORIDE 10 MEQ TABLET PO SCH (12:43)
[2021-10-11] MEDS: ASCORBIC ACID 500 MG TABLET PO SCH (12:44)
[2021-10-11] MEDS: TAMSULOSIN 0.4 MG CAPSULE PO SCH ×2 (12:44→21:35)
[2021-10-11] MEDS: FUROSEMIDE 20 MG TABLET PO SCH (12:44)
[2021-10-11] MEDS: CYANOCOBALAMIN 500 MCG TABLET PO SCH (12:44)
[2021-10-11] MEDS: METOPROLOL SUCCINATE XL 100 MG TABLET PO SCH (12:44)
[2021-10-11] MEDS: allopurinoL 300 MG TABLET PO SCH (12:45)
[2021-10-11] MEDS: DOCUSATE SODIUM 100 MG CAPSULE PO SCH (21:34)
[2021-10-11] MEDS: ATORVASTATIN 80 MG TABLET PO SCH (21:35)
[2021-10-11] MEDS: FENOFIBRATE 160 MG TABLET PO SCH (21:35)
[2021-10-11] MEDS: PANTOPRAZOLE 40 MG TABLET PO SCH (21:35)
[2021-10-12 05:26] LABS: Basophils % 0.3 % (0.0-0.8); Eosinophils % 0.4 % (0.00-10.9); Hematocrit 29.2 VOL% (42.0-52.0); Immature Granulocytes % 0.6 %; Immature Granulocytes Absolute 0.07 #; Lymphocytes # 0.3 10*3/uL (1.4-4.0); Mean Corpuscular HGB Conc 30.8 GM/DL (32-36); Mean Corpuscular Volume 100.7 FL (87-102); Mean Platelet Volume 9.1 FL (9.6-12.0); Monocytes # 0.6 10*3/uL (0.11-0.8); Monocytes % 5.5 % (1.7-12.7); Neutrophils % 90.2 % (38.7-73.9); Platelet Count 127 T/CUMM (130-400); Red Cell Distribution Width 17.9 % (9.3-17.3); White Blood Count 11.4 T/CUMM (4-12)
[2021-10-12 05:59] LABS: Hypochromia Slight; Lymphocytes 2 % (20-55); Macrocytosis Slight; Platelet Estimate Normal; Total Cells Counted 100
[2021-10-12] MEDS ORDERED: POLYETHYLENE GLYCOL POWDER 17 GM PACK PO SCH (09:00)
[2021-10-12] MEDS ORDERED: DOCUSATE SODIUM 100 MG CAPSULE PO SCH (09:00)
[2021-10-12] MEDS: MAGNESIUM CHLORIDE 64 MG TABLET PO SCH (09:31)
[2021-10-12] MEDS: MULTIVITAMIN (BEROCCA) TABLET PO SCH (09:31)
[2021-10-12] MEDS: CYANOCOBALAMIN 500 MCG TABLET PO SCH (09:31)
[2021-10-12] MEDS: FUROSEMIDE 20 MG TABLET PO SCH (09:31)
[2021-10-12] MEDS: METOPROLOL SUCCINATE XL 100 MG TABLET PO SCH (09:32)
[2021-10-12] MEDS: VITAMIN E 400 UNIT CAPSULE PO SCH (09:32)
[2021-10-12] MEDS: POTASSIUM CHLORIDE 10 MEQ TABLET PO SCH (09:32)
[2021-10-12] MEDS: ASCORBIC ACID 500 MG TABLET PO SCH (09:33)
[2021-10-12] MEDS: allopurinoL 300 MG TABLET PO SCH (09:33)
[2021-10-12] MEDS: DOCUSATE SODIUM 100 MG CAPSULE PO SCH (09:33)
[2021-10-12] MEDS: CHOLECALCIFEROL 1,000 UNIT TABLET PO SCH (09:34)
[2021-10-12] MEDS: TAMSULOSIN 0.4 MG CAPSULE PO SCH (09:34)
[2021-10-12 10:43] VITALS: BP 107/67
== END 2021-10-12 11:34 | disposition home or self-care (01) | DRG 348 ==
LOC: N.ED 14:15 → N.EDINP 14:15 → OBSVTOIN 15:43 → N.TELEN 18:00
PROVIDERS: ADMIT Internal Medicine Geriatric Medicine; ATTEND Internal Medicine Geriatric Medicine

== ENCOUNTER 2021-10-17 16:04 | Observation (INO) ==
[2021-10-17] MEDS ORDERED: ZALEPLON 5 MG CAPSULE PO PRN (16:12)
[2021-10-17] MEDS ORDERED: diphenhydrAMINE CAP 25 MG CAPSULE PO PRN (16:12)
[2021-10-17] MEDS ORDERED: ALUMINUM/MAGNES/SIMETH MAX STR 30 ML UDCUP PO PRN (16:12)
[2021-10-17] MEDS ORDERED: LACTULOSE 20 GM/30 ML UDCUP PO PRN (16:12)
[2021-10-17] MEDS ORDERED: BISACODYL 5 MG TABLET PO PRN (16:12)
[2021-10-17] MEDS ORDERED: MORPHINE 2 MG/1 ML SYRINGE IV PRN (16:12)
[2021-10-17] MEDS ORDERED: ONDANSETRON 4 MG/2 ML VIAL IV PRN (16:12)
[2021-10-17] MEDS ORDERED: SIMETHICONE CHEW 125 MG TABLET PO PRN (16:12)
[2021-10-17] MEDS ORDERED: ACETAMINOPHEN 325 MG TABLET PO PRN (16:12)
[2021-10-17] MEDS ORDERED: CALCIUM CARBONATE CHEW 500 MG TABLET PO PRN (16:12)
[2021-10-17] MEDS ORDERED: metOLazone 2.5 MG TABLET PO PRN (16:16)
[2021-10-17 18:42] LABS: Eosinophils # 0.2 10*3/uL (0.0-0.87); Eosinophils % 1.8 % (0.00-10.9); Hemoglobin 9.8 GM/DL (14.0-18.0); Mean Corpuscular Volume 98.8 FL (87-102); Mean Platelet Volume 8.9 FL (9.6-12.0)
[2021-10-17] MEDS ORDERED: ALBUTEROL 2.5 MG/3 ML NEB RESP TX PRN (18:52)
[2021-10-17 19:05] LABS: Basophils # 0.1 10*3/uL (0.0-0.2); Basophils % 0.7 % (0.0-0.8); Hematocrit 32.8 VOL% (42.0-52.0); Immature Granulocytes % 7.1 %; Immature Granulocytes Absolute 0.71 #; Lymphocytes # 0.7 10*3/uL (1.4-4.0); Lymphocytes % 6.5 % (21.2-54.2); Mean Corpuscular HGB Conc 29.9 GM/DL (32-36); Monocytes # 1.1 10*3/uL (0.11-0.8); Monocytes % 10.5 % (1.7-12.7); NRBC # 0.04 10*3/uL; Neutrophils % 73.4 % (38.7-73.9); Platelet Count 248 T/CUMM (130-400); Red Blood Count 3.32 MC/CUMM (3.8-5.5); Red Cell Distribution Width 17.9 % (9.3-17.3)
[2021-10-17 19:11] LABS: Anisocytosis 1+; Band Neutrophils 3 % (0-10); Eosinophils 2 % (0-10); Hypochromia 1+; Lymphocytes 7 % (20-55); Total Cells Counted 100
[2021-10-17 19:12] LABS: Elliptocytes Few; Polychromasia 1+
[2021-10-17 19:13] LABS: Platelet Estimate Adequate
[2021-10-17 19:37] LABS: Albumin 2.9 G/DL (3.4-5.0); Bilirubin,Total 0.9 MG/DL (0.20-1.00); Calcium 9.3 MG/DL (8.5-10.1); Osmolality,Calculated 279.7 MOS/KG (273-304); Potassium 4.3 MMOL/L (3.5-5.1); Total Protein 6.2 G/DL (6.4-8.2)
[2021-10-17] MEDS ORDERED: FUROSEMIDE 40 MG/4 ML VIAL IV ONE (21:00)
[2021-10-17 22:00] LABS: Albumin 3.5 G/DL (3.4-5.0); Bilirubin,Total 0.7 MG/DL (0.20-1.00); Calcium 8.7 MG/DL (8.5-10.1); Osmolality,Calculated 281.3 MOS/KG (273-304); Potassium 4.9 MMOL/L (3.5-5.1); Total Protein 7.5 G/DL (6.4-8.2)
[2021-10-17] MEDS: TAMSULOSIN 0.4 MG CAPSULE PO SCH (22:02)
[2021-10-17] MEDS: FENOFIBRATE 160 MG TABLET PO SCH (22:03)
[2021-10-17] MEDS: DOCUSATE SODIUM 100 MG CAPSULE PO SCH (22:03)
[2021-10-17] MEDS: ATORVASTATIN 80 MG TABLET PO SCH (22:03)
[2021-10-18 04:22] LABS: Basophils # 0.1 10*3/uL (0.0-0.2); Basophils % 0.8 % (0.0-0.8); Eosinophils # 0.3 10*3/uL (0.0-0.87); Eosinophils % 3.3 % (0.00-10.9); Hematocrit 31.2 VOL% (42.0-52.0); Hemoglobin 9.3 GM/DL (14.0-18.0); Immature Granulocytes % 5.5 %; Immature Granulocytes Absolute 0.51 #; Lymphocytes # 0.9 10*3/uL (1.4-4.0); Lymphocytes % 9.3 % (21.2-54.2); Mean Corpuscular HGB Conc 29.8 GM/DL (32-36); Mean Corpuscular Volume 98.1 FL (87-102); Mean Platelet Volume 9.1 FL (9.6-12.0); Monocytes % 10.6 % (1.7-12.7); NRBC # 0.03 10*3/uL; Neutrophils % 70.5 % (38.7-73.9); Platelet Count 236 T/CUMM (130-400); Red Blood Count 3.18 MC/CUMM (3.8-5.5); Red Cell Distribution Width 17.8 % (9.3-17.3); White Blood Count 9.3 T/CUMM (4-12)
[2021-10-18 04:47] LABS: Eosinophils 4 % (0-10); Hypochromia Slight; Lymphocytes 10 % (20-55); Microcytosis Slight; Platelet Estimate Adequate; Total Cells Counted 100
[2021-10-18 04:56] LABS: Calcium 8.6 MG/DL (8.5-10.1); Potassium 3.9 MMOL/L (3.5-5.1); Thyroid Stimulating Hormone 2.28 uIU/ml (0.358-3.74)
[2021-10-18] MEDS ORDERED: metOLazone 2.5 MG TABLET PO ONE (07:53)
[2021-10-18] MEDS ORDERED: FUROSEMIDE 40 MG/4 ML VIAL IV ONE (07:56)
[2021-10-18] MEDS ORDERED: FUROSEMIDE 40 MG/4 ML VIAL IV SCH (08:00)
[2021-10-18] MEDS: ASCORBIC ACID 500 MG TABLET PO SCH (08:03)
[2021-10-18] MEDS: OMEGA 3 ACID ETHYL ESTERS 1 GM CAPSULE PO SCH (08:03)
[2021-10-18] MEDS: POTASSIUM CHLORIDE 10 MEQ TABLET PO SCH (08:03)
[2021-10-18] MEDS: MAGNESIUM CHLORIDE 64 MG TABLET PO SCH (08:04)
[2021-10-18] MEDS: METOPROLOL SUCCINATE XL 100 MG TABLET PO SCH (08:05)
[2021-10-18] MEDS: POLYETHYLENE GLYCOL POWDER 17 GM PACK PO SCH (08:05)
[2021-10-18] MEDS: PANTOPRAZOLE 40 MG TABLET PO SCH (08:06)
[2021-10-18] MEDS: DOCUSATE SODIUM 100 MG CAPSULE PO SCH ×2 (08:06→21:05)
[2021-10-18] MEDS: CHOLECALCIFEROL 1,000 UNIT TABLET PO SCH (08:06)
[2021-10-18] MEDS: allopurinoL 300 MG TABLET PO SCH (08:07)
[2021-10-18] MEDS: COLCHICINE 0.6 MG CAPSULE PO SCH (08:07)
[2021-10-18] MEDS: MULTIVITAMIN (BEROCCA) TABLET PO SCH (08:07)
[2021-10-18] MEDS: VITAMIN E 400 UNIT CAPSULE PO SCH (08:07)
[2021-10-18] MEDS: TAMSULOSIN 0.4 MG CAPSULE PO SCH ×2 (08:08→21:05)
[2021-10-18] MEDS: CYANOCOBALAMIN 500 MCG TABLET PO SCH (08:38)
[2021-10-18] MEDS ORDERED: FUROSEMIDE 20 MG TABLET PO SCH (09:00)
[2021-10-18] MEDS ORDERED: MAGNESIUM SULF RIDER 2 GM/50 ML PREMIX IV ONE (15:06)
[2021-10-18 16:11] LABS: Calcium 8.8 MG/DL (8.5-10.1)
[2021-10-18] MEDS: FENOFIBRATE 160 MG TABLET PO SCH (21:05)
[2021-10-18] MEDS: ATORVASTATIN 80 MG TABLET PO SCH (21:05)
[2021-10-19 06:03] LABS: Basophils # 0.1 10*3/uL (0.0-0.2); Basophils % 0.9 % (0.0-0.8); Eosinophils # 0.5 10*3/uL (0.0-0.87); Eosinophils % 5.9 % (0.00-10.9); Hematocrit 33.1 VOL% (42.0-52.0); Hemoglobin 9.8 GM/DL (14.0-18.0); Immature Granulocytes Absolute 0.35 #; Lymphocytes # 0.8 10*3/uL (1.4-4.0); Lymphocytes % 9.7 % (21.2-54.2); Mean Corpuscular HGB Conc 29.6 GM/DL (32-36); Mean Corpuscular Volume 97.9 FL (87-102); Mean Platelet Volume 8.7 FL (9.6-12.0); Monocytes # 1.1 10*3/uL (0.11-0.8); Monocytes % 12.7 % (1.7-12.7); Neutrophils % 66.8 % (38.7-73.9); Platelet Count 242 T/CUMM (130-400); Red Blood Count 3.38 MC/CUMM (3.8-5.5); Red Cell Distribution Width 17.4 % (9.3-17.3); White Blood Count 8.7 T/CUMM (4-12)
[2021-10-19 06:20] LABS: Calcium 8.6 MG/DL (8.5-10.1); Osmolality,Calculated 278.5 MOS/KG (273-304); Potassium 3.9 MMOL/L (3.5-5.1)
[2021-10-19] MEDS: POLYETHYLENE GLYCOL POWDER 17 GM PACK PO SCH (08:16)
[2021-10-19] MEDS: allopurinoL 300 MG TABLET PO SCH (08:18)
[2021-10-19] MEDS: MAGNESIUM CHLORIDE 64 MG TABLET PO SCH (08:18)
[2021-10-19] MEDS: MULTIVITAMIN (BEROCCA) TABLET PO SCH (08:19)
[2021-10-19] MEDS: POTASSIUM CHLORIDE 10 MEQ TABLET PO SCH (08:20)
[2021-10-19] MEDS: OMEGA 3 ACID ETHYL ESTERS 1 GM CAPSULE PO SCH (08:20)
[2021-10-19] MEDS: TAMSULOSIN 0.4 MG CAPSULE PO SCH (08:20)
[2021-10-19] MEDS: CYANOCOBALAMIN 500 MCG TABLET PO SCH (08:20)
[2021-10-19] MEDS: ASCORBIC ACID 500 MG TABLET PO SCH (08:20)
[2021-10-19] MEDS: COLCHICINE 0.6 MG CAPSULE PO SCH (08:21)
[2021-10-19] MEDS: CHOLECALCIFEROL 1,000 UNIT TABLET PO SCH (08:21)
[2021-10-19] MEDS: METOPROLOL SUCCINATE XL 100 MG TABLET PO SCH (08:21)
[2021-10-19] MEDS: DOCUSATE SODIUM 100 MG CAPSULE PO SCH (08:22)
[2021-10-19] MEDS: VITAMIN E 400 UNIT CAPSULE PO SCH (08:22)
[2021-10-19] MEDS: PANTOPRAZOLE 40 MG TABLET PO SCH (08:22)
[2021-10-19 08:26] VITALS: BP 113/78
== END 2021-10-19 10:55 | disposition home or self-care (01) ==
LOC: N.2W
PROVIDERS: ADMIT Internal Medicine Cardiovascular Disease; ATTEND Internal Medicine Cardiovascular Disease

== ENCOUNTER 2022-03-11 07:24 | Inpatient (IN) ==
[2022-03-11] MEDS ORDERED: SODIUM CHLORIDE 0.9% 500 ML IV STA (07:44)
[2022-03-11] MEDS ORDERED: FUROSEMIDE 40 MG/4 ML VIAL IV STA (07:48)
[2022-03-11 08:08] LABS: Basophils # 0.1 10*3/uL (0.0-0.2); Basophils % 0.9 % (0.0-0.8); Eosinophils # 0.4 10*3/uL (0.0-0.87); Eosinophils % 5.5 % (0.00-10.9); Hemoglobin 9.4 GM/DL (14.0-18.0); Immature Granulocytes % 1.4 %; Lymphocytes # 0.5 10*3/uL (1.4-4.0); Lymphocytes % 7.1 % (21.2-54.2); Mean Corpuscular HGB Conc 29.4 GM/DL (32-36); Mean Corpuscular Volume 91.2 FL (87-102); Mean Platelet Volume 8.7 FL (9.6-12.0); Monocytes # 0.9 10*3/uL (0.11-0.8); Monocytes % 12.4 % (1.7-12.7); Neutrophils % 72.7 % (38.7-73.9); Platelet Count 251 T/CUMM (130-400); Red Blood Count 3.51 MC/CUMM (3.8-5.5); Red Cell Distribution Width 16.5 % (9.3-17.3)
[2022-03-11 08:21] LABS: INR 1.2; PT Patient Result 12.9 SECS (10.1-12.1)
[2022-03-11 08:26] LABS: Albumin 3.4 G/DL (3.4-5.0); Bilirubin,Total 0.9 MG/DL (0.20-1.00); Calcium 9.1 MG/DL (8.5-10.1); Osmolality,Calculated 287.7 MOS/KG (273-304); Potassium 4.3 MMOL/L (3.5-5.1); Total Protein 6.9 G/DL (6.4-8.2)
[2022-03-11] MEDS ORDERED: PIPERACILLIN/TAZOBACTAM 3,375 MG in SODIUM CHLORIDE 0.9% 100 ML IV STA (08:48)
[2022-03-11] MEDS ORDERED: hydrALAZINE 20 MG/1 ML VIAL IV PRN (09:41)
[2022-03-11] MEDS ORDERED: ONDANSETRON 4 MG/2 ML VIAL IV PRN (09:41)
[2022-03-11] MEDS ORDERED: ACETAMINOPHEN 325 MG TABLET PO PRN (09:41)
[2022-03-11] MEDS ORDERED: LACTATED RINGERS 1,000 ML IV SCH (10:00)
[2022-03-11 10:53] LABS: Bilirubin,Urine Negative (Negative); Blood, Urine Negative (Negative); Glucose,Urine (UA) Negative (Negative); Ketones,Urine Negative (Negative); Nitrite,Urine Negative (Negative); Protein,Urine Negative (Negative); RBC,Urine 1 /HPF (0-4); Urine Appearance Clear (Clear); Urine Color Yellow (Yellow); Urine Specific Gravity 1.015 (1.001-1.035); Urine Urobilinogen 0.2 eU/dL (<2.0); Urine pH 6.5 (4.5-8.0)
[2022-03-11] MEDS ORDERED: metOLazone 2.5 MG TABLET PO PRN (15:51)
[2022-03-11] MEDS ORDERED: ALBUTEROL 2.5 MG/3 ML NEB RESP TX PRN (15:51)
[2022-03-11 17:06] LABS: % Iron Saturation 4.7 % (18-50)
[2022-03-11 17:41] LABS: Folate > 24.00 NG/ML (5.38-24.0); Vitamin B12 > 2000 PG/ML (211-911)
[2022-03-11] MEDS: FUROSEMIDE 40 MG/4 ML VIAL IV SCH (17:42)
[2022-03-11] MEDS: LEVALBUTEROL 0.31 MG/3 ML NEB RESP TX SCH (19:32)
[2022-03-11] MEDS ORDERED: APIXABAN 5 MG TABLET PO SCH (21:00)
[2022-03-11] MEDS: APIXABAN 5 MG TABLET PO SCH (22:00)
[2022-03-11] MEDS: FENOFIBRATE 160 MG TABLET PO SCH (22:00)
[2022-03-11] MEDS: ATORVASTATIN 80 MG TABLET PO SCH (22:00)
[2022-03-11] MEDS: TAMSULOSIN 0.4 MG CAPSULE PO SCH (22:01)
[2022-03-12] MEDS: LEVALBUTEROL 0.31 MG/3 ML NEB RESP TX SCH ×7 (00:25→23:00)
[2022-03-12 05:01] LABS: Calcium 8.5 MG/DL (8.5-10.1); Osmolality,Calculated 286.3 MOS/KG (273-304); Potassium 3.9 MMOL/L (3.5-5.1)
[2022-03-12 05:15] LABS: Basophils # 0.1 10*3/uL (0.0-0.2); Basophils % 0.7 % (0.0-0.8); Eosinophils # 0.4 10*3/uL (0.0-0.87); Eosinophils % 4.7 % (0.00-10.9); Hematocrit 29.6 VOL% (42.0-52.0); Hemoglobin 8.8 GM/DL (14.0-18.0); Immature Granulocytes % 1.2 %; Lymphocytes # 0.7 10*3/uL (1.4-4.0); Mean Corpuscular HGB Conc 29.7 GM/DL (32-36); Mean Corpuscular Volume 89.7 FL (87-102); Mean Platelet Volume 8.7 FL (9.6-12.0); Monocytes # 0.9 10*3/uL (0.11-0.8); Monocytes % 10.7 % (1.7-12.7); Neutrophils % 74.7 % (38.7-73.9); Platelet Count 212 T/CUMM (130-400); Red Cell Distribution Width 16.4 % (9.3-17.3); White Blood Count 8.1 T/CUMM (4-12)
[2022-03-12] MEDS ORDERED: METOPROLOL SUCCINATE XL 100 MG TABLET PO SCH (09:00)
[2022-03-12] MEDS: POTASSIUM CHLORIDE 10 MEQ TABLET PO SCH (11:15)
[2022-03-12] MEDS: MULTIVITAMIN (BEROCCA) TABLET PO SCH (11:15)
[2022-03-12] MEDS: OMEGA 3 ACID ETHYL ESTERS 1 GM CAPSULE PO SCH (11:15)
[2022-03-12] MEDS: AZITHROMYCIN 250 MG TABLET PO SCH (11:15)
[2022-03-12] MEDS: TAMSULOSIN 0.4 MG CAPSULE PO SCH ×2 (11:15→21:27)
[2022-03-12] MEDS: METOPROLOL SUCCINATE XL 100 MG TABLET PO SCH (11:15)
[2022-03-12] MEDS: CYANOCOBALAMIN 500 MCG TABLET PO SCH (11:15)
[2022-03-12] MEDS: FUROSEMIDE 40 MG/4 ML VIAL IV SCH ×2 (11:15→17:18)
[2022-03-12] MEDS: allopurinoL 300 MG TABLET PO SCH (11:16)
[2022-03-12] MEDS: MAGNESIUM CHLORIDE 64 MG TABLET PO SCH (11:16)
[2022-03-12] MEDS: ASCORBIC ACID 500 MG TABLET PO SCH (11:16)
[2022-03-12] MEDS: COLCHICINE 0.6 MG CAPSULE PO SCH (11:16)
[2022-03-12] MEDS: CHOLECALCIFEROL 1,000 UNIT TABLET PO SCH (11:16)
[2022-03-12] MEDS: PANTOPRAZOLE 40 MG TABLET PO SCH (11:16)
[2022-03-12] MEDS: POLYETHYLENE GLYCOL POWDER 17 GM PACK PO SCH (11:16)
[2022-03-12] MEDS: APIXABAN 5 MG TABLET PO SCH (11:37)
[2022-03-12] MEDS: FENOFIBRATE 160 MG TABLET PO SCH (21:27)
[2022-03-12] MEDS: ATORVASTATIN 80 MG TABLET PO SCH (21:27)
[2022-03-13] MEDS: LEVALBUTEROL 0.31 MG/3 ML NEB RESP TX SCH ×6 (03:20→22:43)
[2022-03-13 05:15] LABS: Basophils # 0.1 10*3/uL (0.0-0.2); Eosinophils # 0.4 10*3/uL (0.0-0.87); Hematocrit 29.9 VOL% (42.0-52.0); Hemoglobin 8.9 GM/DL (14.0-18.0); Immature Granulocytes % 0.8 %; Immature Granulocytes Absolute 0.05 #; Lymphocytes # 0.7 10*3/uL (1.4-4.0); Lymphocytes % 11.6 % (21.2-54.2); Mean Corpuscular HGB Conc 29.8 GM/DL (32-36); Mean Corpuscular Volume 88.5 FL (87-102); Mean Platelet Volume 8.3 FL (9.6-12.0); Monocytes # 0.9 10*3/uL (0.11-0.8); Monocytes % 14.2 % (1.7-12.7); Neutrophils % 65.4 % (38.7-73.9); Platelet Count 184 T/CUMM (130-400); Red Blood Count 3.38 MC/CUMM (3.8-5.5); Red Cell Distribution Width 16.5 % (9.3-17.3); White Blood Count 6.1 T/CUMM (4-12)
[2022-03-13 05:50] LABS: Calcium 8.5 MG/DL (8.5-10.1); Osmolality,Calculated 289.8 MOS/KG (273-304); Potassium 3.8 MMOL/L (3.5-5.1)
[2022-03-13] MEDS: CHOLECALCIFEROL 1,000 UNIT TABLET PO SCH (10:13)
[2022-03-13] MEDS: MAGNESIUM CHLORIDE 64 MG TABLET PO SCH (10:14)
[2022-03-13] MEDS: ASCORBIC ACID 500 MG TABLET PO SCH (10:14)
[2022-03-13] MEDS: AZITHROMYCIN 250 MG TABLET PO SCH (10:14)
[2022-03-13] MEDS: CYANOCOBALAMIN 500 MCG TABLET PO SCH (10:14)
[2022-03-13] MEDS: TAMSULOSIN 0.4 MG CAPSULE PO SCH ×2 (10:15→21:48)
[2022-03-13] MEDS: METOPROLOL SUCCINATE XL 100 MG TABLET PO SCH (10:15)
[2022-03-13] MEDS: MULTIVITAMIN (BEROCCA) TABLET PO SCH (10:15)
[2022-03-13] MEDS: COLCHICINE 0.6 MG CAPSULE PO SCH ×2 (10:15)
[2022-03-13] MEDS: POTASSIUM CHLORIDE 10 MEQ TABLET PO SCH (10:15)
[2022-03-13] MEDS: allopurinoL 300 MG TABLET PO SCH ×2 (10:15)
[2022-03-13] MEDS: PANTOPRAZOLE 40 MG TABLET PO SCH (10:15)
[2022-03-13] MEDS: OMEGA 3 ACID ETHYL ESTERS 1 GM CAPSULE PO SCH (10:15)
[2022-03-13] MEDS: POLYETHYLENE GLYCOL POWDER 17 GM PACK PO SCH (10:16)
[2022-03-13] MEDS: FUROSEMIDE 40 MG/4 ML VIAL IV SCH ×2 (10:16→15:24)
[2022-03-13] MEDS: FENOFIBRATE 160 MG TABLET PO SCH (21:48)
[2022-03-13] MEDS: ATORVASTATIN 80 MG TABLET PO SCH (21:48)
[2022-03-14] MEDS: LEVALBUTEROL 0.31 MG/3 ML NEB RESP TX SCH ×5 (02:52→19:31)
[2022-03-14 06:06] LABS: Calcium 8.8 MG/DL (8.5-10.1); Osmolality,Calculated 281.5 MOS/KG (273-304); Potassium 3.8 MMOL/L (3.5-5.1)
[2022-03-14 06:15] LABS: Basophils # 0.1 10*3/uL (0.0-0.2); Basophils % 0.8 % (0.0-0.8); Eosinophils # 0.4 10*3/uL (0.0-0.87); Eosinophils % 5.9 % (0.00-10.9); Immature Granulocytes Absolute 0.06 #; Lymphocytes # 0.5 10*3/uL (1.4-4.0); Lymphocytes % 8.5 % (21.2-54.2); Mean Corpuscular Volume 88.3 FL (87-102); Mean Platelet Volume 8.9 FL (9.6-12.0); Monocytes # 0.9 10*3/uL (0.11-0.8); Neutrophils % 69.8 % (38.7-73.9); Platelet Count 214 T/CUMM (130-400); Red Blood Count 3.51 MC/CUMM (3.8-5.5); Red Cell Distribution Width 16.5 % (9.3-17.3); White Blood Count 6.3 T/CUMM (4-12)
[2022-03-14 06:17] LABS: Anisocytosis 1+; Ovalocytes Few; Platelet Estimate Normal
[2022-03-14] MEDS: METOPROLOL SUCCINATE XL 100 MG TABLET PO SCH (09:37)
[2022-03-14] MEDS: MAGNESIUM CHLORIDE 64 MG TABLET PO SCH (09:37)
[2022-03-14] MEDS: POLYETHYLENE GLYCOL POWDER 17 GM PACK PO SCH ×2 (09:37→09:53)
[2022-03-14] MEDS: POTASSIUM CHLORIDE 10 MEQ TABLET PO SCH (09:37)
[2022-03-14] MEDS: ASCORBIC ACID 500 MG TABLET PO SCH (09:37)
[2022-03-14] MEDS: CHOLECALCIFEROL 1,000 UNIT TABLET PO SCH (09:38)
[2022-03-14] MEDS: OMEGA 3 ACID ETHYL ESTERS 1 GM CAPSULE PO SCH (09:38)
[2022-03-14] MEDS: PANTOPRAZOLE 40 MG TABLET PO SCH (09:38)
[2022-03-14] MEDS: CYANOCOBALAMIN 500 MCG TABLET PO SCH (09:38)
[2022-03-14] MEDS: TAMSULOSIN 0.4 MG CAPSULE PO SCH ×2 (09:38→20:15)
[2022-03-14] MEDS: COLCHICINE 0.6 MG CAPSULE PO SCH ×2 (09:39→09:52)
[2022-03-14] MEDS: MULTIVITAMIN (BEROCCA) TABLET PO SCH (09:39)
[2022-03-14] MEDS: allopurinoL 300 MG TABLET PO SCH ×2 (09:39→09:53)
[2022-03-14] MEDS: AZITHROMYCIN 250 MG TABLET PO SCH (09:39)
[2022-03-14] MEDS: FUROSEMIDE 40 MG/4 ML VIAL IV SCH ×2 (09:40→16:18)
[2022-03-14] MEDS: ATORVASTATIN 80 MG TABLET PO SCH (20:15)
[2022-03-14] MEDS: FENOFIBRATE 160 MG TABLET PO SCH (20:15)
[2022-03-15] MEDS: LEVALBUTEROL 0.31 MG/3 ML NEB RESP TX SCH ×4 (00:53→10:50)
[2022-03-15 05:18] LABS: Calcium 9.3 MG/DL (8.5-10.1); Osmolality,Calculated 287.1 MOS/KG (273-304); Potassium 4.4 MMOL/L (3.5-5.1)
[2022-03-15 05:36] LABS: Basophils # 0.1 10*3/uL (0.0-0.2); Basophils % 0.7 % (0.0-0.8); Eosinophils # 0.6 10*3/uL (0.0-0.87); Eosinophils % 6.7 % (0.00-10.9); Hematocrit 31.4 VOL% (42.0-52.0); Hemoglobin 9.2 GM/DL (14.0-18.0); Immature Granulocytes Absolute 0.08 #; Lymphocytes # 0.8 10*3/uL (1.4-4.0); Lymphocytes % 9.6 % (21.2-54.2); Mean Corpuscular HGB Conc 29.3 GM/DL (32-36); Mean Corpuscular Volume 88.2 FL (87-102); Monocytes # 1.1 10*3/uL (0.11-0.8); Monocytes % 13.7 % (1.7-12.7); Neutrophils % 68.3 % (38.7-73.9); Platelet Count 242 T/CUMM (130-400); Red Blood Count 3.56 MC/CUMM (3.8-5.5); Red Cell Distribution Width 16.7 % (9.3-17.3); White Blood Count 8.2 T/CUMM (4-12)
[2022-03-15 05:51] LABS: Anisocytosis 2+; Ovalocytes Few; Platelet Estimate Normal; Polychromasia Slight
[2022-03-15 05:52] LABS: Spherocytes Few
[2022-03-15] MEDS: MULTIVITAMIN (BEROCCA) TABLET PO SCH (10:53)
[2022-03-15] MEDS: METOPROLOL SUCCINATE XL 100 MG TABLET PO SCH (10:54)
[2022-03-15] MEDS: MAGNESIUM CHLORIDE 64 MG TABLET PO SCH (10:54)
[2022-03-15] MEDS: PANTOPRAZOLE 40 MG TABLET PO SCH (10:54)
[2022-03-15] MEDS: CYANOCOBALAMIN 500 MCG TABLET PO SCH (10:54)
[2022-03-15] MEDS: POTASSIUM CHLORIDE 10 MEQ TABLET PO SCH (10:54)
[2022-03-15] MEDS: OMEGA 3 ACID ETHYL ESTERS 1 GM CAPSULE PO SCH (10:55)
[2022-03-15] MEDS: CHOLECALCIFEROL 1,000 UNIT TABLET PO SCH (10:55)
[2022-03-15] MEDS: ASCORBIC ACID 500 MG TABLET PO SCH (10:56)
[2022-03-15] MEDS: TAMSULOSIN 0.4 MG CAPSULE PO SCH (10:56)
[2022-03-15] MEDS: COLCHICINE 0.6 MG CAPSULE PO SCH (10:56)
[2022-03-15] MEDS: AZITHROMYCIN 250 MG TABLET PO SCH (10:56)
[2022-03-15] MEDS: allopurinoL 300 MG TABLET PO SCH (10:57)
[2022-03-15] MEDS: POLYETHYLENE GLYCOL POWDER 17 GM PACK PO SCH (10:57)
[2022-03-15] MEDS: FUROSEMIDE 40 MG/4 ML VIAL IV SCH (11:02)
[2022-03-15 12:23] VITALS: BP 109/70
== END 2022-03-15 12:28 | disposition home or self-care (01) | DRG 291 ==
LOC: N.ED 07:24 → N.EDINP 09:41 → SUATTDRO 09:41 → N.TELEN 15:53
PROVIDERS: ADMIT Internal Medicine; ATTEND Internal Medicine Geriatric Medicine